=== PATIENT | male | born 1995 | race Two or more races ===

== ENCOUNTER 2019-02-09 22:51 | Emergency (ER) | payer SELFPAY ==
[~2019-02-09] VITALS: Ht 170.2 cm; Wt 91.6 kg
[2019-02-09] MEDS ORDERED: LIDOCAINE 1% Multi-Dose 20 ML VIAL. ONE (23:41)
[2019-02-09 23:55] VITALS: BP 134/81
[2019-02-10] MEDS ORDERED: CIPR7.5D AD (00:07)
--- NOTE | 2019-02-10 00:08 | PHYS DOC ---
Adult General Chief Complaint Chief Complaint: FOREIGNBODY EAR HPI HPI Patient is a 34-year-old male who presents with complaint of right ear pain after a moth flew into his ear. He rates pain as moderate. Prior to my evaluation of patient, nurse had placed lidocaine and the ear canal and moth backed its way out.[] Review of Systems Review of Systems Constitutional: Denies fever or chills [] HENT: Positive right ear pain[] Respiratory: Denies cough or shortness of breath [] Cardiovascular: No additional information not addressed in HPI [] Current Medications Current Medications Current Medications Medications (Trade) Dose Ordered Sig/Cassie Start Time Stop Time Status Last Admin Dose Admin Lidocaine HCl (Lidocaine 1% 20ml Vial) 20 ml STK-MED ONCE 02/09/19 23:41 02/09/19 23:41 DC Physical Exam Physical Exam Constitutional: Well developed, well nourished, no acute distress, non-toxic appearance. [] HENT: Normocephalic, atraumatic, there is redness and mild swelling noted in the right otic canal. [] Cardiovascular:Heart rate regular rhythm, no murmur [] Lungs & Thorax: Bilateral breath sounds clear to auscultation [] EKG EKG [] Radiology/Procedures Radiology/Procedures [] Course & Med Decision Making Course & Med Decision Making Pertinent Labs and Imaging studies reviewed. (See chart for details) [] Dragon Disclaimer Dragon Disclaimer This electronic medical record was generated, in whole or in part, using a voice recognition dictation system. Departure Departure Impression: Primary Impression: Foreign body of right ear Disposition: HOME, SELF-CARE Condition: STABLE Referrals: NO PCP (PCP) Patient Instructions: Ear Foreign Body Scripts Ciprofloxacin Hcl/Dexameth (CIPRODEX OTIC SUSPENSION) 7.5 Ml Drops.susp 4 DROP AD BID, #1 BOTTLE Prov: TO APONTE Jr. DO 02/10/19 Problem Qualifiers Primary Impression: Foreign body of right ear Encounter type: initial encounter Qualified Codes: T16.1XXA - Foreign body in right ear, initial encounter TO APONTE Jr. DO Feb 10, 2019 00:08
== END 2019-02-10 00:20 | disposition home or self-care (01) ==
LOC: EDBD 22:51 → ER 22:51
DX: T16.1XXA Foreign body in right ear, initial encounter (principal); X58.XXXA Exposure to other specified factors, initial encounter; Y93.89 Activity, other specified; Y92.89 Other specified places as the place of occurrence of the external cause; Y99.8 Other external cause status
CPT/HCPCS: 69200; 99284